=== PATIENT | male | born 1990 | race Caucasian/White ===

== ENCOUNTER 2023-02-22 16:05 | Emergency (ER) | payer OTHER ==
--- NOTE | 2023-02-22 16:14 | ERPHSYRPT ---
- History of Present Illness Time Seen by Provider: 02/22/23 16:14 Source: patient Exam Limitations: no limitations Physician History: This is a 32-year-old right-handed white male who was removing what he thought was Plexiglas from his home and in fact was regular glass and the glass broke causing small laceration to the right second and third fingers. He was concerned because there was bleeding and he could not get the bleeding stopped with pressure. Patient's tetanus status is up-to-date. Patient has a history of hyperlipidemia, hypothyroidism and hypertension. Occurred: just prior to arrival Method of Injury: other (Accidentally broke glass in his right hand) Quality: burning Severity of Pain-Max: mild Severity of Pain-Current: mild Extremities Pain Location: 2nd finger: right, 3rd finger: right Modifying Factors: Improves With: nothing Associated Symptoms: none Allergies/Adverse Reactions: No Known Drug Allergies Allergy (Unverified 02/22/23 16:21) Home Medications: Atenolol [Tenormin] 100 mg PO DAILY 02/22/23 [History] Levothyroxine Sodium 100 Mcg [Synthroid 100 Mcg] 100 mg PO DAILY 02/22/23 [History] Lisinopril 5 mg [Zestril 5 MG] 5 mg PO DAILY 02/22/23 [History] Lovastatin [Altoprev] 20 mg PO DAILY 02/22/23 [History] Travel Risk - International Travel Have you traveled outside of the country in past 3 weeks: No - Coronavirus Screening Are you exhibiting any of the following symptoms?: No Close contact with a COVID-19 positive Pt in past 14-21 Days: No - Review of Systems Constitutional: No Symptoms Eyes: No Symptoms Ears, Nose, & Throat: No Symptoms Respiratory: No Symptoms Cardiac: No Symptoms Abdominal/Gastrointestinal: No Symptoms Genitourinary Symptoms: No Symptoms Musculoskeletal: No Symptoms Skin: Other (two small lacerations to the ulnar aspect of the second digit and a single small laceration to the ulnar aspect of the third digit. Patient is neurovascularly intact. There is no evidence of tendon injury) Psychological: No Symptoms Endocrine: No Symptoms Hematologic/Lymphatic: No Symptoms Immunological/Allergic: No Symptoms All Other Systems: Reviewed and Negative - Past Medical History Pertinent Past Medical History: Yes - Past Surgical History Past Surgical History: Yes - Nursing Vital Signs Nursing Vital Signs: Initial Vital Signs Temperature 98.6 F 02/22/23 16:17 Pulse Rate 93 H 02/22/23 16:17 Respiratory Rate 15 02/22/23 16:17 Blood Pressure 120/60 02/22/23 16:17 O2 Sat by Pulse Oximetry 97 02/22/23 16:17 Pain Scale Pain Intensity 5 - Physical Exam General Appearance: no apparent distress, alert Eyes, Ears, Nose, Throat Exam: normal ENT inspection, moist mucous membranes Neck Exam: normal inspection, non-tender, supple, full range of motion Cardiovascular/Respiratory Exam: chest non-tender, no respiratory distress Abdominal Exam: non-tender Back Exam: normal inspection, normal range of motion, No CVA tenderness Shoulder Exam: normal inspection, non-tender, no evidence of injury, normal ROM Elbow/Forearm Exam: normal inspection, non-tender, no evidence of injury, normal ROM Wrist Exam: normal inspection, non-tender, no evidence of injury, normal ROM Hand Exam: normal ROM, laceration (Less than 5 mm laceration ulnar aspect of second digit x2, single less than 5 mm laceration ulnar aspect third digit), soft tissue tenderness (Mild in same region), No deformity Neuro/Tendon Exam: normal sensation, normal motor functions, normal tendon functions, responds to pain, no evidence tendon injury Mental Status Exam: alert, oriented x 3 Skin Exam: normal color, warm, dry, laceration (See above description) SpO2 Interpretation: normal Procedures - Laceration/Wound Repair Right Medial Finger Time of Procedure: 17:40 Wound Location: Right, hand Wound Length (cm): 1.5 (Total of 3 lacerations) Wound's Depth, Shape: superficial, linear Wound Explored: clean Irrigated: No Hibiclens Prep: No Wound Repaired With: Steri-strips, Dermabond Layer Closure?: No - Course Nursing assessment & vital signs reviewed: Yes Ordered Tests: Active Orders 24 hr Category Date Time Status HAND (MINIMUM 3 VIEWS) Stat Exams 02/22/23 16:46 Taken - Progress Progress: improved Progress Note: 02/22/23 17:54 This patient's medical issue is 1 of low complexity. Level complexity in the work-up performed is based on review of the patient's past medical history, review the patient's medication list, review the patient drug allergy list, history of present illness and physical findings on examination. No laboratory studies are necessary in this patient. However, I did order x-ray of the right hand to evaluate for foreign body retention. X-ray of right hand was interpreted by me. There is no evidence of any acute fracture or dislocation. There is no evidence of radiopaque foreign body. Medical Desision Making - Independent Historian Additional History obtained from: Spouse - Diagnostic Testing Diagnostic test were ordered, analyzed, and reviewed by me: Yes Radiological Interpretation: Interpreted by me - Risk of complications The pt has a mod risk of morbidity or mortality based on: Need for prescription drug management - Departure Departure Disposition: Home Clinical Impression: Finger laceration Condition: Stable Critical Care Time: No Additional Instructions: Keep current dressing in place until the evening of 02/23/2023. May remove the top dressing leaving the Steri-Strips in place telemetry follow-up on their own. Take your antibiotics and other medications as prescribed. Use Tylenol and ibuprofen for pain control if there are no contraindications. Forms: Work/School Release Form Prescriptions: Cephalexin Mh 500 mg [Keflex 500 mg] 500 mg PO TID #15 cap
[2023-02-22 16:31] VITALS: BP 120/60; PULSE 93; RESP 15; TEMP 98.6; O2SAT 97
--- NOTE | 2023-02-22 23:15 | XRAY ---
Indication: Glass foreign body. Comparison: None 3 view right hand demonstrates 2nd/3rd finger superficial lacerations without radiopaque foreign body. No other bony, articular, or soft tissue abnormalities.
== END 2023-02-22 18:15 | disposition home or self-care (01) ==
LOC: ED 16:05
DX: S61.210A Laceration without foreign body of right index finger without damage to nail, initial encounter (principal); S61.212A Laceration without foreign body of right middle finger without damage to nail, initial encounter; W25.XXXA Contact with sharp glass, initial encounter; E78.5 Hyperlipidemia, unspecified; I10 Essential (primary) hypertension; Z79.899 Other long term (current) drug therapy
CPT/HCPCS: 12001; 73130; 99282